=== PATIENT | female | born 1935 | race Two or more races ===

== ENCOUNTER 2020-01-11 06:13 | Day surgery (SDC) | payer MEDICAID ==
[~2020-01-11] VITALS: Ht 142.2 cm; Wt 70.5 kg
[2020-01-11] MEDS ORDERED: LIDOCAINE 4% 50 ML SOLUTION TP ONE (06:14)
[2020-01-11] MEDS ORDERED: BENZOCAINE 20% 50 MCG/SPRAY 57 GM TP ONE (06:14)
[2020-01-11] MEDS ORDERED: ALBUTEROL SULFATE 2.5 MG/0.5 ML NEB SOLUTION NEB ONE (06:14)
[2020-01-11] MEDS ORDERED: LIDOCAINE 2% 30 ML JELLY TP ONE (06:14)
[2020-01-11] MEDS ORDERED: SODIUM CHLORIDE 0.9% 1,000 ML IV ONE (06:30)
[2020-01-11 07:16] LABS: GLUCOMETER DEV NAME(LOC) SDS.; GLUCOSE,POINT OF CARE 161 MG/DL (70-110)
[2020-01-11] MEDS ORDERED: INSLAN SQ (07:16)
[2020-01-11] MEDS ORDERED: MONT-35 PO (07:16)
[2020-01-11] MEDS ORDERED: LOSA25TA21 PO (07:16)
[2020-01-11] MEDS ORDERED: DULO-8 PO (07:16)
[2020-01-11] MEDS ORDERED: VITA1TAB22 PO (07:16)
[2020-01-11] MEDS ORDERED: INSU100V36 SQ (07:16)
[2020-01-11] MEDS ORDERED: FURO40 PO (07:16)
[2020-01-11] MEDS ORDERED: ADV500 IH (07:16)
[2020-01-11] MEDS ORDERED: ASCO500 PO (07:16)
[2020-01-11] MEDS ORDERED: FLUT16H NASAL (07:16)
[2020-01-11] MEDS ORDERED: CALC1TAB PO (07:16)
[2020-01-11] MEDS ORDERED: ALBU8HFA IH (07:16)
[2020-01-11] MEDS ORDERED: BENZ100C68 PO (07:16)
[2020-01-11] MEDS ORDERED: OMEP20 PO (07:16)
[2020-01-11] MEDS ORDERED: BECL10.62 IH (07:16)
[2020-01-11] MEDS ORDERED: MIDAZOLAM HCL 2 MG/2 ML VIAL ONE (07:40)
[2020-01-11] MEDS ORDERED: FentaNYL CITRATE-PF 100 MCG/2 ML VIAL ONE (07:40)
[2020-01-11] MEDS ORDERED: MethylPREDNISolone SOD SUCC 125 MG/2 ML VIAL ONE (08:59)
[2020-01-11] MEDS ORDERED: MethylPREDNISolone SOD SUCC 125 MG/2 ML VIAL IVP ONE (09:00)
[2020-01-11] MEDS ORDERED: OXYGEN THERAPY IH SCH (20:00)
== END 2020-01-11 10:45 | disposition home or self-care (01) ==
LOC: SURGERY 06:13
PROVIDERS: ATTEND Internal Medicine Critical Care Medicine
DX: J38.4 Edema of larynx (principal); B37.0 Candidal stomatitis; E78.00 Pure hypercholesterolemia, unspecified; Z98.890 Other specified postprocedural states
CPT/HCPCS: 31623; 31624; 71045; 82962; 87015; 87070; 87101; 87205; 87206; 87220; 87426; 88108; 88312; J2250; J2930; J3010; J7613; Z7610

== ENCOUNTER 2020-11-10 06:59 | Day surgery (SDC) | payer OTHER ==
[2020-11-07 12:55] LABS: COVID AG,FIA SOURCE NASOPHARYNGEAL
[~2020-11-10] VITALS: Ht 152.4 cm; Wt 61.4 kg
[~2020-11-10 06:59] MED LIST: ADV500 IH; ALBU8HFA IH; ASCO500 PO; BECL10.62 IH; BENZ100C68 PO; CALC1TAB PO; DULO-8 PO; FLUT16H NASAL; FURO40 PO; INSLAN SQ; INSU100V36 SQ; LOSA25TA21 PO; MONT-35 PO; OMEP20 PO; SODIUM CHLORIDE 0.9% 1,000 ML IV ONE; SODIUM CHLORIDE 0.9% 1,000 ML ONE; VITA1TAB22 PO
[2020-11-10] MEDS ORDERED: MIDAZOLAM HCL 2 MG/2 ML VIAL ONE (07:50)
[2020-11-10] MEDS ORDERED: FentaNYL CITRATE PF 100 MCG/2 ML VIAL ONE (07:50)
[2020-11-10 08:07] LABS: GLUCOMETER DEV NAME(LOC) SDS.; GLUCOSE,POINT OF CARE 290 MG/DL (70-110)
[2020-11-10] MEDS ORDERED: MethylPREDNISolone SOD SUCC 125 MG/2 ML VIAL IVP ONE (08:45)
[2020-11-10] MEDS ORDERED: MethylPREDNISolone SOD SUCC 125 MG/2 ML VIAL ONE (08:53)
[2020-11-10] MEDS ORDERED: LIDOCAINE 2% 30 ML JELLY ONE (17:08)
[2020-11-10] MEDS ORDERED: BENZOCAINE 20% 50 MCG/SPRAY 57 GM ONE (17:08)
[2020-11-10] MEDS ORDERED: ALBUTEROL SULFATE 2.5 MG/0.5 ML NEB SOLUTION NEB ONE (17:08)
[2020-11-10] MEDS ORDERED: OXYGEN THERAPY IH SCH (20:00)
== END 2020-11-10 10:40 | disposition home or self-care (01) ==
LOC: SURGERY 06:59
PROVIDERS: ATTEND Internal Medicine Critical Care Medicine
DX: J38.4 Edema of larynx (principal); B37.0 Candidal stomatitis; Z79.899 Other long term (current) drug therapy
CPT/HCPCS: 31623; 31624; 71045; 82962; 87015; 87070; 87101; 87205; 87206; 87220; 87426; 88108; 88184; 88185; 88312; 93005; C9803; J2250; J2930; J3010; J7030; J7613